=== PATIENT | female | born 1955 | race Caucasian/White ===

== ENCOUNTER 2018-09-26 12:14 | Emergency (ER) | payer MEDICARE ==
[~2018-09-26] VITALS: Ht 167.6 cm; Wt 65.9 kg
[2018-09-26 12:19] VITALS: Ht 167.6 cm; Wt 65.9 kg
[2018-09-26] MEDS ORDERED: SYNTHROID100 MCG PO (12:20)
[2018-09-26] MEDS ORDERED: FLUTICASONE PRO16 GM NASAL (12:21)
[2018-09-26] MEDS ORDERED: ALBUTEROL SULF8.5 GM INH (12:22)
[2018-09-26] MEDS ORDERED: LIPITOR20 MG PO (12:22)
[2018-09-26] MEDS ORDERED: ASPIRIN81 MG PO (12:22)
[2018-09-26] MEDS ORDERED: BREO ELLIPTA 21 EACH (12:23)
[2018-09-26] MEDS ORDERED: CENTRUM SILVER1 EAC3 PO (12:23)
[2018-09-26 13:00] LABS: BASOPHILS 0.3 % (0-2); EOSINOPHILS 0.7 % (0-7); HEMOGLOBIN 15.4 g/dL (12-16); IMMATURE GRANULOCYTES 0.2 % (0-5); LYMPHOCYTES 18.9 % (15-50); MCH 33.8 pg (26.0-34.0); MCV 96.5 fL (80.0-100.0); MEAN PLATELET VOLUME 10.8 fL (7.4-10.4); MONOCYTES 11.5 % (2-11); NEUTROPHILS 68.4 % (40-80); PLATELET COUNT 237 10x3/uL (130-400); RBC 4.56 10x6/uL (4.00-5.40); RDW 12.3 % (11.5-14.5); WBC 10.9 10x3/uL (4.8-10.8)
[2018-09-26 13:07] LABS: ALBUMIN 3.8 g/dL (3.4-5.0); ALKALINE PHOSPHATASE 93 U/L (46-116); ALT (SGPT) 50 U/L (10-68); BILIRUBIN - TOTAL 0.91 mg/dL (0.2-1.3); CALC OSMOLALITY 279 mosm/kg (275-300); CALCIUM 9.7 mg/dL (8.5-10.1); CARBON DIOXIDE 29.4 mmol/L (21.0-32.0); CHLORIDE - SERUM 102 mmol/L (98-107); CREATININE - SERUM 0.4 mg/dL (0.6-1.3); GLUCOSE 85 mg/dL (74-106); PROTEIN - SERUM 7.4 g/dL (6.4-8.2); SODIUM 142 mmol/L (136-145); UREA NITROGEN 8 mg/dL (7-18); eGFR NON AFRICAN AMERICAN > 90 mL/min (90-120)
[2018-09-26 13:09] LABS: POTASSIUM - SERUM 4.3 mmol/L (3.5-5.1)
[2018-09-26 13:18] LABS: CKMB 0.5 U/L (0.0-3.6); CREATINE KINASE 66 UL (21-215); TROPONIN-I < 0.017 ng/mL (0.000-0.060)
[2018-09-26] MEDS ORDERED: NITROQUICK0.4 MG SL (14:21)
[2018-09-26 14:33] VITALS: BP 148/64
== END 2018-09-26 14:35 | disposition home or self-care (01) ==
LOC: D.ER 12:14
PROVIDERS: Emergency Medicine
DX: R07.9 Chest pain, unspecified (principal)

== ENCOUNTER → 2018-10-15 13:53 | Outpatient (CLI) | payer OTHER ==
[2018-09-26 12:19] VITALS: BMI 23.4
[~2018-10-15 13:53] MED LIST: ALBUTEROL SULF8.5 GM INH; ASPIRIN81 MG PO; BREO ELLIPTA 21 EACH; CENTRUM SILVER1 EAC3 PO; FLUTICASONE PRO16 GM NASAL; LIPITOR20 MG PO; NITROQUICK0.4 MG SL; SYNTHROID100 MCG PO
== END | disposition home or self-care (01) ==
LOC: D.HCCARDIO 13:53
PROVIDERS: ATTEND Internal Medicine Cardiovascular Disease
DX: R07.9 Chest pain, unspecified (principal)

== ENCOUNTER 2019-04-15 18:30 | Outpatient (CLI) | payer MEDICARE, OTHER ==
[2018-09-26 12:19] VITALS: BMI 23.4
== END 2019-04-15 23:59 | disposition home or self-care (01) ==
LOC: D.MAMMO 18:30
PROVIDERS: ATTEND Nurse Practitioner Family
DX: Z12.31 Encounter for screening mammogram for malignant neoplasm of breast (principal)

== ENCOUNTER → 2019-05-29 10:21 | Outpatient (CLI) | payer MEDICARE, OTHER ==
[2018-09-26 12:19] VITALS: BMI 23.4
== END | disposition home or self-care (01) ==
LOC: D.US 08:30 → D.NM 09:00 → D.US 10:21
PROVIDERS: ATTEND Internal Medicine Gastroenterology
DX: R10.13 Epigastric pain (principal)

== ENCOUNTER 2020-08-21 13:30 | Emergency (ER) | payer MEDICARE, OTHER ==
[~2020-08-21] VITALS: Ht 167.6 cm; Wt 70.9 kg
[2020-08-21 13:35] VITALS: BP 147/88; Ht 167.6 cm; Wt 70.9 kg
[2020-08-21] MEDS ORDERED: CEPHALEXIN500 M1 PO (13:44)
[2020-08-21] MEDS ORDERED: MEDROL DOSE PACK4 MG PO (13:44)
== END 2020-08-21 14:07 | disposition home or self-care (01) ==
LOC: D.ER 13:30
DX: S60.562A Insect bite (nonvenomous) of left hand, initial encounter (principal); J45.909 Unspecified asthma, uncomplicated; Z72.0 Tobacco use; W57.XXXA Bitten or stung by nonvenomous insect and other nonvenomous arthropods, initial encounter; Y93.9 Activity, unspecified; Y92.9 Unspecified place or not applicable